=== PATIENT | female | born 1965 | race Hispanic/Latino ===

== ENCOUNTER 2024-07-26 00:54 | Emergency (ER) | payer OTHER ==
[2024-07-26] MEDS ORDERED: AMOX/K CLAV 875 MG TAB ONE (01:52)
--- NOTE | 2024-07-26 02:04 | EDPHYS ---
Physician Documentation [facility] Name: Mi Turcios Age: 58 yrs Sex: Female : 1965 Arrival Date: 07/26/2024 Time: 00:54 Bed 5 Private MD: ED Physician Tasneem Quinn HPI: 07/26 01:50 This 58 yrs old Female presents to ER via Unassigned with complaints of Flu sp3 Symptoms. 01:50 58-year-old female with history of hypertension presents with right buccal area sp3 swelling for 2 to 3 days. She denies any fever, sore throat, chest pain, shortness of breath, neck pain, sinus pressure, or any other signs or symptoms on ROS at this time. She has had prior dental work in the past.. Historical: - Allergies: 01:53 No Known Allergies; vc1 - PMHx: 01:53 Hypertensive disorder; vc1 - PSHx: 01:53 section; vc1 - Immunization history:: Client reports receiving the 2nd dose of the Covid vaccine, Flu vaccine is not up to date. - Infectious Disease History:: Denies. - Social history:: Smoking status: Patient denies any tobacco usage or history of. ROS: 01:51 Constitutional: Negative for fever, chills, and weight loss, Eyes: Negative for injury, sp3 pain, redness, and discharge, Neck: Negative for injury, pain, and swelling, Cardiovascular: Negative for chest pain, palpitations, and edema, Respiratory: Negative for shortness of breath, cough, wheezing, and pleuritic chest pain, Abdomen/GI: Negative for abdominal pain, nausea, vomiting, diarrhea, and constipation, Back: Negative for injury and pain, MS/Extremity: Negative for injury and deformity, Neuro: Negative for headache, weakness, numbness, tingling, and seizure, Psych: Negative for depression, anxiety, suicide ideation, homicidal ideation, and hallucinations, Allergy/Immunology: Negative for hives, rash, and allergies, Endocrine: Negative for neck swelling, polydipsia, polyuria, polyphagia, and marked weight changes, 01:51 All other systems are negative, Exam: 01:51 Constitutional: This is a well developed, well nourished patient who is awake, alert, sp3 and in no acute distress. Eyes: Pupils equal round and reactive to light, extra-ocular motions intact. Lids and lashes normal. Conjunctiva and sclera are non-icteric and not injected. Cornea within normal limits. Periorbital areas with no swelling, redness, or edema. ENT: Nares patent. No nasal discharge, no septal abnormalities noted. External auditory canals are clear. Oropharynx with no redness, swelling, or masses, exudates, or evidence of obstruction, uvula midline. Mucous membranes moist. Neck: Trachea midline, no thyromegaly or masses palpated, and no cervical lymphadenopathy. Supple, full range of motion without nuchal rigidity, or vertebral point tenderness. No Meningismus. Chest/axilla: Normal chest wall appearance and motion. Nontender with no deformity. No lesions are appreciated. Cardiovascular: Regular rate and rhythm with a normal S1 and S2. No gallops, murmurs, or rubs. Normal PMI, no JVD. No pulse deficits. Respiratory: Lungs have equal breath sounds bilaterally, clear to auscultation and percussion. No rales, rhonchi or wheezes noted. No increased work of breathing, no retractions or nasal flaring. Abdomen/GI: Soft, non-tender, with normal bowel sounds. No distension or tympany. No guarding or rebound. No evidence of tenderness throughout. Back: No spinal tenderness. No costovertebral tenderness. Full range of motion. MS/ Extremity: Pulses equal, no cyanosis. Neurovascular intact. Full, normal range of motion. Neuro: Awake and alert, GCS 15, oriented to person, place, time, and situation. Cranial nerves II-XII grossly intact. Motor strength 5/5 in all extremities. Sensory grossly intact. Cerebellar exam normal. Normal gait. Psych: Awake, alert, with orientation to person, place and time. Behavior, mood, and affect are within normal limits. 01:51 Head/face: Right buccal area of swelling and exterior face swelling without surface cellulitis. Mild dental tenderness noted in the maxilla on the right side. No uvular shift or peritonsillar swelling.. Vital Signs: 01:51 BP 151 / 90; Pulse 68; Resp 14; Temp 97.7; Pulse Ox 96% ; Weight 90.72 kg; Height 5 ft. vc1 3 in. ; Pain 10/10; 01:54 BP 136 / 80; Pulse 63; Resp 18; Pulse Ox 97% ; br2 01:51 Body Mass Index 35.43 (90.72 kg, 160.02 cm) vc1 01:51 Pain Scale: Adult vc1 MDM: 01:06 Medical Screening Exam initiated sp3 01:52 Data reviewed: vital signs, nurses notes. ED course: Differential diagnosis includes sp3 dental origin infection versus buccal infection versus mild facial cellulitis. Treatment will be the same [id number] with Augmentin p.o. with first dose given in the ER. Follow-up with dentistry for further evaluation and PCP as needed.. Administered Medications: 01:54 Drug: Amoxicillin-Clavulanate PO 875 mg PO once Route: PO; cp4 01:57 Follow up: Response: Medication administered at discharge. vc1 Disposition Summary: 07/26/24 01:53 Discharge Ordered Notes: Location: Home sp3 Condition: Stable sp3 Diagnosis - Facial swelling and dental infection sp3 Followup: sp3 - With: Private Physician - When: Upon discharge from the Emergency Department - Reason: Continuance of care Discharge Instructions: - Discharge Summary Sheet sp3 - Dental Pain sp3 Forms: - Medication Reconciliation Form sp3 - Antibiotic Education sp3 - Prescription Opioid Use sp3 - Patient Portal Instructions sp3 - Leadership Thank You Letter sp3 Prescriptions: - Augmentin 875-125 mg Oral Tablet - take 1 tablet ORAL route every 12 hours for 10 days; 20 tablet; Refills: 0, sp3 Product Selection Permitted - Tramadol 50 mg Oral Tablet - take 1 tablet ORAL route every 8 hours as needed; 12 tablet; Refills: 0, sp3 Product Selection Permitted Signatures: Dispatcher [employer] EDTasneem Huff MD MD sp3 Cassi Powell RN RN vc1 Piedad Leal cp4
--- NOTE | 2024-07-26 02:04 | ER ---
Nurse's Notes [facility] Name: Mi Turcios Age: 58 yrs Sex: Female : 1965 Arrival Date: 07/26/2024 Time: 00:54 Bed 5 Private MD: Diagnosis: Facial swelling and dental infection Presentation: 07/26 01:51 Chief complaint: Patient states: Right cheek swollen and painful. Coronavirus screen: vc1 Client denies travel out of the [place] in the last 14 days. At this time, the client does not indicate any symptoms associated with coronavirus-19. Ebola Screen: Patient negative for fever greater than or equal to 101.5 degrees Fahrenheit, and additional compatible Ebola Virus Disease symptoms Patient denies exposure to infectious person. Patient denies travel to an Ebola-affected area in the 21 days before illness onset. No symptoms or risks identified at this time. Initial Sepsis Screen: Does the patient meet any 2 criteria? No. Patient's initial sepsis screen is negative. Does the patient have a suspected source of infection? No. Patient's initial sepsis screen is negative. Risk Assessment: Do you want to hurt yourself or someone else? Patient reports no desire to harm self or others. Onset of symptoms was July 25, 2024. 01:51 Method Of Arrival: Ambulatory vc1 01:51 Acuity: KAVIN 4 vc1 Triage Assessment: 01:55 General: Appears in no apparent distress. uncomfortable, obese, Behavior is vc1 cooperative, crying. Pain: Complains of pain in right cheek Pain radiates to right ear Pain currently is 10 out of 10 on a pain scale. Quality of pain is described as pressure. EENT: No deficits noted. No signs and/or symptoms were reported regarding the EENT system. Neuro: Level of Consciousness is awake, alert, obeys commands, Oriented to person, place, time, situation, Appropriate for age. Cardiovascular: Heart tones S1 S2 present Capillary refill < 3 seconds Patient's skin is warm and dry. Respiratory: Airway is patent Respiratory effort is even, unlabored, Respiratory pattern is regular, symmetrical, Breath sounds are clear bilaterally. GI: Abdomen is round non-distended. : No deficits noted. No signs and/or symptoms were reported regarding the genitourinary system. Derm: Skin is intact, is healthy with good turgor, Skin is dry, Skin is normal, Skin temperature is warm. Musculoskeletal: Circulation, motion, and sensation intact. Range of motion: intact in all extremities. Historical: - Allergies: 01:53 No Known Allergies; vc1 - PMHx: 01:53 Hypertensive disorder; vc1 - PSHx: 01:53 section; vc1 - Immunization history:: Client reports receiving the 2nd dose of the Covid vaccine, Flu vaccine is not up to date. - Infectious Disease History:: Denies. - Social history:: Smoking status: Patient denies any tobacco usage or history of. Screenin:51 [facility] ED Fall Risk Assessment (Adult) History of falling in the last 3 months, vc1 including since admission No falls in past 3 months (0 pts) Confusion or Disorientation No (0 pts) Intoxicated or Sedated No (0 pts) Impaired Gait No (0 pts) Mobility Assist Device Used No (0 pt) Altered Elimination No (0 pt) Score/Fall Risk Level 0 - 2 = Low Risk Oriented to surroundings, Maintained a safe environment, Educated pt \T\ family on fall prevention, incl call for assistance when getting out of bed. Abuse screen: Denies threats or abuse. Nutritional screening: No deficits noted. Tuberculosis screening: No symptoms or risk factors identified. Assessment: 01:49 Reassessment: Patient and/or family updated on plan of care and expected duration. Pain br2 level reassessed. Patient is alert, oriented x 3, equal unlabored respirations, skin warm/dry/pink. General: Appears uncomfortable, Behavior is calm, cooperative. Pain: Complains of pain in right cheek and right ear Pain currently is 10 out of 10 on a pain scale. EENT: Reports RIGHT CHEEK SWOLLEN AND RED. Vital Signs: 01:51 BP 151 / 90; Pulse 68; Resp 14; Temp 97.7; Pulse Ox 96% ; Weight 90.72 kg; Height 5 ft. vc1 3 in. ; Pain 10/10; 01:54 BP 136 / 80; Pulse 63; Resp 18; Pulse Ox 97% ; br2 01:51 Body Mass Index 35.43 (90.72 kg, 160.02 cm) vc1 01:51 Pain Scale: Adult vc1 ED Course: 00:59 Patient arrived in ED. im 01:00 Tasneem Quinn MD is Attending Physician. sp3 01:49 Teagan Cage, RN is Primary Nurse. br2 01:52 Triage completed. vc1 01:53 Arm band placed on right wrist. vc1 01:54 Patient has correct armband on for positive identification. Bed in low position. Call vc1 light in reach. Pulse ox on. NIBP on. 01:56 Provided Education on: complete abx. vc1 01:56 No provider procedures requiring assistance completed. Patient did not have IV access br2 during this emergency room visit. Administered Medications: 01:54 Drug: Amoxicillin-Clavulanate PO 875 mg PO once Route: PO; cp4 01:57 Follow up: Response: Medication administered at discharge. vc1 Medication: :54 VIS not applicable for this client. vc1 Outcome: 01:53 Discharge ordered by . sp3 01:56 Discharged to home ambulatory, vc1 01:56 Condition: good 01:56 Discharge instructions given to patient, Instructed on discharge instructions, follow up and referral plans. medication usage, Demonstrated understanding of instructions, follow-up care, medications, Prescriptions given X 2, 01:56 Discharged to home ambulatory, br2 01:56 Condition: good 01:56 Discharge instructions given to patient, Instructed on discharge instructions, follow up and referral plans. Demonstrated understanding of instructions, follow-up care, medications, Prescriptions given X 2, 02:04 Patient left the ED. cp4 Signatures: Tasneem Quinn MD MD sp3 Cassi Powell, RN RN vc1 Janie Donis Christina cp4 Teagan Cage, LANDRY RN br2
[2024-07-26 08:44] VITALS: TEMP 97.7
[2024-07-26 08:45] VITALS: BP 136/80; O2SAT 97
--- OUTSIDE RECORDS SUMMARY | 2024-07-27 02:09 | XMS REPORT | Continuity of Care Document ---
Author Name Unknown Address [address] [facility] Add[place]. [address] [place] [id number] [facility] thconnect Address [address] [facility] 1 [address] [place] [address] Care Team Providers Care Senior Trial Attorney Name Role Phone Noelle Kelsey Primary Care Physician [phone] JOAQUIN HAMMOND Attending Clinician Unavailab laila KAUR Attending Clinician Unavailable THOMAS_S Admitting Clinician Unavailable Payers Payer Name Policy Type Policy Number Effective Date Expirati on Date Source [facility] LEELEE HUFFMAN COPAY FOCUS 9 [id number] 2023 00:00:00 Medications Ordered Medication Name Filled Medication Name Start Date Stop Date Current Medication? Ordering Clinician Indication Dosage Frequency Signature (SIG) Comments Components Source chlorthalid one 50 mg tablet - 00:00: 00 Yes 1mg Lorne Patricia diclofenac sodium 75 mg tablet,jonathan yed release - 00:00: 00 Yes 1mg Lorne Patricia meloxicam 15 mg tablet 10-27 00:00: 00 Yes 1mg Lorne Patricia meloxicam 15 mg tablet 10-15 00:00: 00 Yes 1mg Lorne Patricia tramadol 50 mg tablet - 00:00: 00 Yes 12mg Lorne Patricia diclofenac 1 % topical gel - 00:00: 00 Yes 1% Lorne Patricia cyclobenzap rine 10 mg tablet -16 00:00: 00 Yes 1mg Lorne Patricia gabapentin 100 mg capsule -16 00:00: 00 Yes 1mg Lorne Patricia amlodipine 10 mg tablet - 00:00: 00 Yes mg Lorneshalonda Patricia atorvastati n 40 mg tablet 09-17 00:00: 00 Yes mg Lorne Ty Patricia hydrochloro thiazide 25 mg tablet 09-17 00:00: 00 Yes mg Lorne Patricia lisinopril 40 mg tablet 09-17 00:00: 00 Yes mg Lorne Patricia TAKE 1 TABLET DAILY. 08-05 00:00: 00 Yes 10 Lorne Ty Patricia TAKE 1 TABLET BY MOUTH DAILY 08-05 00:00: 00 Yes 40 Lorne F Harshad TAKE 1 TABLET BY MOUTH DAILY 08-05 00:00: 00 Yes 40 Lorne Ty Patricia TAKE 1 TABLET DAILY. 08-05 00:00: 00 Yes 25 Lorne Patricia TAKE 1 TABLET DAILY. 2022-06 00:00: 00 11-08 00:00 :00 No 75 Lorne Ty Patricia TAKE 1 CAPSULE BY MOUTH ONCE DAILY 2022-06 1- 00:00: 00 11-08 00:00 :00 No 125 Lorne F Harshad TAKE 1 TABLET DAILY. 2022-06 1 00:00: 00 11-08 00:00 :00 No 10 Lorne Ty Patricia TAKE 1 TABLET BY MOUTH DAILY 2022-06 1- 00:00: 00 11-08 00:00 :00 No 40 Lorne F Harshad TAKE 1 CAPSULE BY MOUTH ONCE DAILY 2022-06 0-04 00:00: 00 11-08 00:00 :00 No 125 Lorne F Harshad TAKE 1 TABLET DAILY. 2022-06 0-04 00:00: 00 11-08 00:00 :00 No 10 Lorne F Harshad TAKE 1 TABLET BY MOUTH DAILY 2022-06 0-04 00:00: 00 11-08 00:00 :00 No 40 Lorne F Harshad TAKE 1 TABLET BY MOUTH DAILY 2022-06 0-04 00:00: 00 11-08 00:00 :00 No 40 Lorne F Harshad TAKE DIRECTED. 8-30 00:00: 00 11-08 00:00 :00 No Lorne F Harshad TAKE 1 CAPSULE BY MOUTH ONCE DAILY 01-21 00:00: 00 11-08 00:00 :00 No 125 Lorne F Harshad TAKE 1 TABLET BY MOUTH DAILY 01-21 00:00: 00 11-08 00:00 :00 No 40 Lorne F Harshad TAKE 1 TABLET BY MOUTH DAILY 01-21 00:00: 00 11-08 00:00 :00 No 40 Lorne F Harshad TAKE 1 TABLET DAILY. 09-22 00:00: 00 11-08 00:00 :00 No 40 Lorne F Harshad TAKE 1 TABLET DAILY. 09-22 00:00: 00 11-08 00:00 :00 No 40 Lorne F Harshad TAKE 1 TABLET EVERY 8 HOURS NEEDED FOR MUSCLE SPASM. 09-22 00:00: 00 11-08 00:00 :00 No 10 Lorne F Harshad TAKE 1 TABLET TWICE A DAY NEEDED 09-22 00:00: 00 11-08 00:00 :00 No 600 Lorne F Harshad Dose Unknown 2021-06 00:00: 00 11-08 00:00 :00 No Lorne F Harshad Dose Unknown 2021-06 00:00: 00 11-08 00:00 :00 No Lorne F Harshad Dose Unknown 2021-06 00:00: 00 11-08 00:00 :00 No Lorne F Harshad Dose Unknown 2021-06 00:00: 00 11-08 00:00 :00 No Lorne F Harshad TAKE 1 TABLET DAILY. 2021-06 00:00: 00 11-08 00:00 :00 No 40unit Lorne F Harshad TAKE 1 CAPSULE ONCE DAILY. 2021-06 00:00: 00 11-08 00:00 :00 No 125 Lorne F Harshad TAKE 1 TABLET DAILY. 2021-06 00:00: 00 11-08 00:00 :00 No 40 Lorne F Harshad Dose Unknown 11-18 00:00: 00 Yes Lorne F Harshad Dose Unknown 11-18 00:00: 00 Yes Lorne F Harshad Dose Unknown 2021-0 5- 00:00: 00 No Dose Unknown 2021-0 5- 00:00: 00 No Dose Unknown 2021-0 2- 00:00: 00 Yes Lorne Patricia Dose Unknown 2021-0 2-02 00:00: 00 Yes Lorne Patricia Dose Unknown 2021-0 2-02 00:00: 00 No Dose Unknown 2021-0 2- 00:00: 00 No Dose Unknown 2020-1 2- 00:00: 00 Yes oLrne Ptaricia Dose Unknown 2020-1 2- 00:00: 00 No Dose Unknown 2020-0 8-29 00:00: 00 Yes Lorne Patricia Dose Unknown 2020-0 8-29 00:00: 00 No Dose Unknown 2020-0 8-02 00:00: 00 Yes Lorne Patricia Dose Unknown 2020-0 8- 00:00: 00 No Dose Unknown 2020-0 7 00:00: 00 Yes Lorne Patricia Dose Unknown 0 7 00:00: 00 No Dose Unknown 0 830 00:00: 00 Yes Lorne Patricia Dose Unknown 0 830 00:00: 00 No lisinopril 10 mg-hydrochl orothiazide 12.5 mg tablet 0 02-18 00:00: 00 Yes 1mg Lorne Patricia lisinopril 10 mg-hydrochl orothiazide 12.5 mg tablet 0 8 00:00: 00 No 1mg lisinopril 10 mg-hydrochl orothiazide 12.5 mg tablet 0 02-18 00:00: 00 No 5mg Vital Signs Vital Name Observation Time Observation Value Comments S ource BP Systolic 2023-11-05 15:53:00 105 mm[Hg] Rashawn Patricia BP Diastolic 2023-11-05 15:53:00 69 mm[Hg] Addison Patricia Weight Measured 2023-11-05 15:53:00 207.20 pounds Lorne Patricia Height Measured 2023-11-05 15:53:00 63.00 inches Lorne Patricia Body Temperature 2023-11-05 15:53:00 98.00 degrees Lorne Patricia Heart Rate 2023-11-05 15:53:00 79.00 /min Nickie en F Harshad Respiratory Rate 2023-11-05 15:53:00 16.00 /min Lorne F Harshad BP Systolic 2023-10-16 14:56:00 104 mm[Hg] Step hen F Harshad BP Diastolic 2023-10-16 14:56:00 71 mm[Hg] Addison phen F Harshad Weight Measured 2023-10-16 14:56:00 204.60 pounds Lorne F Harshad Height Measured 2023-10-16 14:56:00 63.00 inches Lorne F Harshad Body Temperature 2023-10-16 14:56:00 98.20 degrees Lorne F Harshad Heart Rate 2023-10-16 14:56:00 87.00 /min Nickie en F Harshad Respiratory Rate 2023-10-16 14:56:00 18.00 /min Lorne F Harshad BP Systolic 2023-10-13 17:39:00 103 mm[Hg] Step hen F Harshad BP Diastolic 2023-10-13 17:39:00 62 mm[Hg] Addison phen F Harshad Weight Measured 2023-10-13 17:39:00 207.20 pounds Lorne F Harshad Height Measured 2023-10-13 17:39:00 63.00 inches Lorne F Harshad Body Temperature 2023-10-13 17:39:00 97.20 degrees Lorne F Harshad Heart Rate 2023-10-13 17:39:00 67.00 /min Nickie en F Harshad Respiratory Rate 2023-10-13 17:39:00 18.00 /min Lorne F Harshad BP Systolic 2023-08-05 16:52:00 133 mm[Hg] Step hen F Harshad BP Diastolic 2023-08-05 16:52:00 84 mm[Hg] Addison phen F Harshad Weight Measured 2023-08-05 16:52:00 210.40 pounds Lorne F Harshad Height Measured 2023-08-05 16:52:00 63.00 inches Lorne F Harshad Body Temperature 2023-08-05 16:52:00 98.10 degrees Lorne F Harshad Heart Rate 2023-08-05 16:52:00 68.00 /min Nickie en F Harshad Respiratory Rate 2023-08-05 16:52:00 17.00 /min Lorne F Harshad BP Systolic 2023-05-12 17:20:00 128 mm[Hg] Step hen F Harshad BP Diastolic 2023-05-12 17:20:00 88 mm[Hg] Addison phen F Harshad Weight Measured 2023-05-12 17:20:00 209.80 pounds Lorne F Harshad Height Measured 2023-05-12 17:20:00 63.00 inches Lorne F Harshad Body Temperature 2023-05-12 17:20:00 98.00 degrees Lorne F Harshad Heart Rate 2023-05-12 17:20:00 87.00 /min Nickie en F Harshad Respiratory Rate 2023-05-12 17:20:00 Lorne F Harshad BP Systolic 2023-05-01 17:08:00 116 mm[Hg] Step hen F Harshad BP Diastolic 2023-05-01 17:08:00 75 mm[Hg] Addison phen F Harshad Weight Measured 2023-05-01 17:08:00 213.00 pounds Lorne F Harshad Height Measured 2023-05-01 17:08:00 63.00 inches Lorne F Harshad Body Temperature 2023-05-01 17:08:00 98.00 degrees Lorne F Harshad Heart Rate 2023-05-01 17:08:00 64.00 /min Nickie en F Harshad Respiratory Rate 2023-05-01 17:08:00 Lorne F Harshad BP Systolic 2023-04-01 17:23:00 184 mm[Hg] Step hen F Harshad BP Diastolic 2023-04-01 17:23:00 86 mm[Hg] Addison phen F Harshad Weight Measured 2023-04-01 17:23:00 211.20 pounds Lorne F Harshad Height Measured 2023-04-01 17:23:00 63.00 inches Lorne F Harshad Body Temperature 2023-04-01 17:23:00 98.10 degrees Lorne F Harshad Heart Rate 2023-04-01 17:23:00 61.00 /min Nickie en F Harshad Respiratory Rate 2023-04-01 17:23:00 Lorne F Harshad BP Systolic 2023-02-25 09:22:00 186 mm[Hg] Step hen F Harshad BP Diastolic 2023-02-25 09:22:00 108 mm[Hg] Addison phen F Harshad Weight Measured 2023-02-25 09:22:00 206.80 pounds Lorne F Harshad Height Measured 2023-02-25 09:22:00 63.00 inches Lorne F Harshad Body Temperature 2023-02-25 09:22:00 98.10 degrees Lorne F Harshad Heart Rate 2023-02-25 09:22:00 90.00 /min Nickie en F Harshad Respiratory Rate 2023-02-25 09:22:00 19.00 /min Lorne F Harshad BP Systolic 2022-09-22 08:34:00 131 mm[Hg] Step hen F Harshad BP Diastolic 2022-09-22 08:34:00 86 mm[Hg] Addison phen F Harshad Weight Measured 2022-09-22 08:34:00 196.40 pounds Lorne F Harshad Height Measured 2022-09-22 08:34:00 63.00 inches Lorne F Harshad Body Temperature 2022-09-22 08:34:00 97.80 degrees Lorne F Harshad Heart Rate 2022-09-22 08:34:00 60.00 /min Nickie en F Harshad Respiratory Rate 2022-09-22 08:34:00 Lorne F Harshad BP Systolic 2022-06-04 17:48:00 144 mm[Hg] Step hen F Harshad BP Diastolic 2022-06-04 17:48:00 90 mm[Hg] Addison phen F Harshad Weight Measured 2022-06-04 17:48:00 201.00 pounds Lorne F Harshad Height Measured 2022-06-04 17:48:00 63.00 inches Lorne F Harshad Body Temperature 2022-06-04 17:48:00 98.20 degrees Lorne F Harshad Heart Rate 2022-06-04 17:48:00 70.00 /min Nickie en F Harshad Respiratory Rate 2022-06-04 17:48:00 18.00 /min Lorne F Harshad BP Systolic 2022-05-26 17:07:00 119 mm[Hg] Step hen F Harshad BP Diastolic 2022-05-26 17:07:00 83 mm[Hg] Addison phen F Harshad Weight Measured 2022-05-26 17:07:00 199.20 pounds Lorne F Harshad Height Measured 2022-05-26 17:07:00 63.00 inches Lorne F Harshad Body Temperature 2022-05-26 17:07:00 97.60 degrees Lorne F Harshad Heart Rate 2022-05-26 17:07:00 94.00 /min Nickie en F Harshad Respiratory Rate 2022-05-26 17:07:00 16.00 /min Lorne F Harshad BP Systolic 2021-11-18 09:51:00 141 mm[Hg] Step hen F Harshad BP Diastolic 2021-11-18 09:51:00 90 mm[Hg] Addison phen F Harshad Weight Measured 2021-11-18 09:51:00 197.40 pounds Lorne F Harshad Height Measured 2021-11-18 09:51:00 63.00 inches Lorne F Harshad Body Temperature 2021-11-18 09:51:00 97.60 degrees Lorne F Harshad Heart Rate 2021-11-18 09:51:00 63.00 /min Nickie en F Harshad Respiratory Rate 2021-11-18 09:51:00 16.00 /min Lorne Patricia BP Systolic 2021-02-25 14:31:00 BP Diastolic 2021-02-25 14:31:00 Weight Measured 2021-02-25 14:31:00 197.00 pounds Height Measured 2021-02-25 14:31:00 63.00 inches Body Temperature 2021-02-25 14:31:00 Heart Rate 2021-02-25 14:31:00 Respiratory Rate 2021-02-25 14:31:00 BP Systolic 2021-02-24 10:45:00 BP Diastolic 2021-02-24 10:45:00 Weight Measured 2021-02-24 10:45:00 193.00 pounds Height Measured 2021-02-24 10:45:00 62.00 inches Body Temperature 2021-02-24 10:45:00 Heart Rate 2021-02-24 10:45:00 Respiratory Rate 2021-02-24 10:45:00 BP Systolic 2021-01-26 08:17:00 157 mm[Hg] BP Diastolic 2021-01-26 08:17:00 104 mm[Hg] Weight Measured 2021-01-26 08:17:00 204.40 pounds Height Measured 2021-01-26 08:17:00 62.60 inches Body Temperature 2021-01-26 08:17:00 97.90 degrees Heart Rate 2021-01-26 08:17:00 55.00 /min Respiratory Rate 2021-01-26 08:17:00 BP Systolic 2019-02-25 16:01:00 120 mm[Hg] BP Diastolic 2019-02-25 16:01:00 78 mm[Hg] Weight Measured 2019-02-25 16:01:00 178.00 pounds Height Measured 2019-02-25 16:01:00 62.60 inches Body Temperature 2019-02-25 16:01:00 97.80 degrees Heart Rate 2019-02-25 16:01:00 90.00 /min Respiratory Rate 2019-02-25 16:01:00 16.00 /min BP Systolic 2019-02-18 08:48:00 174 mm[Hg] BP Diastolic 2019-02-18 08:48:00 96 mm[Hg] Weight Measured 2019-02-18 08:48:00 181.80 pounds Height Measured 2019-02-18 08:48:00 62.60 inches Body Temperature 2019-02-18 08:48:00 98.20 degrees Heart Rate 2019-02-18 08:48:00 66.00 /min Respiratory Rate 2019-02-18 08:48:00 16.00 /min Procedures Procedure Date / Time Performed Performing Clinicia n Source Ekg 2021-01-26 00:00:00 Lorne Patricia Plan of Care Planned Activity Planned Date Details Comments Source Goal Plan of Care Note [code = 42969-7] Goal Plan of Care Note [code = 99390-4] Goal Plan of Care Note [code = 42426-2] Goal Plan of Care Note [code = 34650-3] Goal Plan of Care Note [code = 65954-6] Goal Plan of Care Note [code = 39860-9] Goal Plan of Care Note [code = 43257-7] Goal Plan of Care Note [code = 65322-0] Goal Plan of Care Note [code = 88388-9] Goal Plan of Care Note [code = 68273-7] Goal Plan of Care Note [code = 52408-6] Goal Plan of Care Note [code = 82350-2] Goal Plan of Care Note [code = 33211-9] Encounters Start Date/Time End Date/Time Encounter Type Admission Type Attending [facility] Care Department Encounter ID Source 2023-11-05 15:37:39 2023-11-05 15:37:39 Outpatient [facility] [id number] Lorne Patricia 2023-11-05 00:00:00 2023-11-05 00:00:00 Outpatient Visit SFA [id number] Lorne Patricia 2023-10-30 14:41:10 2023-10-30 14:41:10 Outpatient [facility] [id number] Lorne Patricia 2023-10-30 00:00:00 2023-10-30 00:00:00 Outpatient Visit SFA [id number] Lorne Patricia 2023-10-29 00:00:00 2023-10-29 00:00:00 Outpatient JUJU ARREOLA [id number] [facility] 2023-10-29 00:00:00 2023-10-29 00:00:00 Outpatient JUJU ARREOLA [id number] [facility] 2023-10-29 00:00:00 2023-10-29 00:00:00 Outpatient STEPHANY JOAQUIN JUJU ARREOLA [id number] [facility] 2023-10-16 14:52:04 2023-10-16 14:52:04 Outpatient [facility] [id number] Lorne Patricia 2023-10-16 00:00:00 2023-10-16 00:00:00 Outpatient Visit SFA [id number] Lorne Patricia 2023-10-13 00:00:00 2023-10-13 00:00:00 Outpatient Visit SFA [id number] Lorne Patricia 2023-08-05 16:46:23 2023-08-05 16:46:23 Outpatient [facility] [id number] Lorne Patricia 2023-05-12 17:20:06 2023-05-12 17:20:06 Outpatient S[facility] [id number] Lorne Patricia 2023-05-01 17:00:16 2023-05-01 17:00:16 Outpatient [facility] [id number] Lorne Patricia 2023-04-01 17:14:48 2023-04-01 17:14:48 Outpatient [facility] [id number] Lorne Patricia 2023-02-25 09:09:42 2023-02-25 09:09:42 Outpatient S[facility] [id number] Lorne Patricia 2022-09-22 08:32:26 2022-09-22 08:32:26 Outpatient S[facility] [id number] Lorne Patricia 2022-06-04 17:37:38 2022-06-04 17:37:38 Outpatient S[facility] [id number] Lorne Patricia 2022-05-26 16:55:52 2022-05-26 16:55:52 Outpatient [facility] [id number] Lorne Patricia 2022-05-26 00:00:00 2022-05-26 00:00:00 Outpatient Visit [id number] 2021-01-14 04:10:00 2021-01-14 04:10:00 Outpatient VINCENT PEREIRA CAYDENMARCOS [id number] [facility] Results Test Description Test Time Test Comments Results Result Co mments Source LIPID [id number] 02:37:13* Test Item Value Reference Range Interpretation Comme nts CHOLESTEROL (test code = 2210) 260 MG/DL <200 H TRIGLYCERIDES (test code = 2232) 203 MG/DL <150 H HDL CHOLESTEROL (test code = 2220) 46 MG/DL >39 CALC LDL CHOL (test code = 2237) 178 MG/DL <100 H NOTE: CALCULATED LDL IS BASED ON KISHOR-SCHAEFFER METHOD WHICHINCLUDES ADJUSTABLE TRIGLYCERIDE:VLDL CHOLESTEROL RATIO.THIS FACTOR VARIES BY MEASURED TRIGLYCERIDE AND NON-HDLCHOLESTEROL CONCENTRATIONS WITH INCREASED CALCULATED LDL SEENIN HIGHER TRIGLYCERIDE OR LOWER NON-HDL SPECIMENS. FOR MOREINFORMATION, SEE CLIENT ANNOUNCEMENT AT [email or web address] RISK RATIO LDL/HDL (test code = 2237) 3.87 RATIO <3.22 H COMPREHENSIVE METABOLIC [id number] 02:37:13* Test Item Value Reference Range Interpretation Comme nts GLUCOSE (test code = 2216) 125 MG/DL 70-99 H BUN (test code = 2207) 20 MG/DL 6-20 CREATININE (test code = 221) 0.75 MG/DL 0.60-1.30 eGFR (2020 CKD-EPI) (test code = 55214) 93 ML/MIN/1.73 >60 CALC BUN/CREAT (test code = 2234) 27 RATIO 6-28 SODIUM (test code = 2230) 141 MEQ/L 133-146 POTASSIUM (test code = 222) 3.8 MEQ/L 3.5-5.4 CHLORIDE (test code = 2214) 101 MEQ/L 95-107 CARBON DIOXIDE (test code = 2205) 26 MEQ/L 19-31 CALCIUM (test code = 220) 10.0 MG/DL 8.5-10.5 PROTEIN, TOTAL (test code = 2228) 7.5 G/DL 6.1-8.3 ALBUMIN (test code = 2200) 4.5 G/DL 3.5-5.2 CALC GLOBULIN (test code = 2240) 3.0 G/DL 1.9-3.7 CALC A/G RATIO (test code = 2233) 1.5 RATIO 1.0-2.6 BILIRUBIN, TOTAL (test code = 2206) 0.4 MG/DL See_Comment [Automated me ssage] The system which generated this result transmitted reference range: <=1.2. The reference range was not used to interpret this result as normal/abnormal. ALKALINE PHOSPHATASE (test code = 2203) 75 U/L 40-136 AST (test code = 2218) 22 U/L 9-40 ALT (test code = 2219) 18 U/L 5-40 [facility] has impo rtant pathology staff changes effective 08/27/2022. New pathology staff will provide uninterrupted, excellent patient care and clinical consultation. See URL: [email or web address]. UNLESS OTHERWISE INDICATED, ALL TESTING PERFORMED AT [facility] [address] [place] [id number] PAINT SPRAY TENDER: Moira SARABIAIA NUMBER [id number] [facility] [place]. [id number] HEMOGLOBIN [id number] 00:00:00* Test Item Value Reference Range Interpretation Comme nts HEMOGLOBIN A1c (test code = 61652) 6.1 % Lorne PatriciaLIPID [id number] 00:00:00* Test Item Value Reference Range Interpretation Comme nts CHOLESTEROL (test code = 2210) 260 MG/DL TRIGLYCERIDES (test code = 2232) 203 MG/DL HDL CHOLESTEROL (test code = 2220) 46 MG/DL CALC LDL CHOL (test code = 2237) 178 MG/DL RISK RATIO LDL/HDL (test cod e = 2238) 3.87 RATIO Lorne PatriciaCOMPREHENSIVE METABOLIC [id number] 00:00:00* Test Item Value Reference Range Interpretation Comme nts GLUCOSE (test code = 2217) 125 MG/DL BUN (test code = 2208) 20 MG/DL CREATININE (test code = 2214) 0.75 MG/DL eGFR (2020 CKD-EPI) (test co de = 94816) 93 ML/MIN/1.73 CALC BUN/CREAT (test code = 2235) 27 RATIO SODIUM (test code = 2231) 141 MEQ/L POTASSIUM (test code = 2228) 3.8 MEQ/L CHLORIDE (test code = 2215) 101 MEQ/L CARBON DIOXIDE (test code = 2206) 26 MEQ/L CALCIUM (test code = 2209) 10.0 MG/DL PROTEIN, TOTAL (test code = 2229) 7.5 G/DL ALBUMIN (test code = 2201) 4.5 G/DL CALC GLOBULIN (test code = 2240) 3.0 G/DL CALC A/G RATIO (test code = 2234) 1.5 RATIO BILIRUBIN, TOTAL (test code = 2207) 0.4 MG/DL ALKALINE PHOSPHATASE (test code = 2204) 75 U/L AST (test code = 2218) 22 U/L ALT (test code = 2219) 18 U/L Lorne F AustinHEMOGLOBIN [id number] 00:00:00* Test Item Value Reference Range Interpretation Comme nts HEMOGLOBIN A1c (test code = 69407) 6.1 % Lorne PatriciaLIPID [id number] 00:00:00* Test Item Value Reference Range Interpretation Comme nts CHOLESTEROL (test code = 2210) 260 MG/DL TRIGLYCERIDES (test code = 2232) 203 MG/DL HDL CHOLESTEROL (test code = 2220) 46 MG/DL CALC LDL CHOL (test code = 2237) 178 MG/DL RISK RATIO LDL/HDL (test cod e = 2238) 3.87 RATIO Lorne PatriciaCOMPREHENSIVE METABOLIC [id number] 00:00:00* Test Item Value Reference Range Interpretation Comme nts GLUCOSE (test code = 2217) 125 MG/DL BUN (test code = 2208) 20 MG/DL CREATININE (test code = 2214) 0.75 MG/DL eGFR (2020 CKD-EPI) (test co de = 69641) 93 ML/MIN/1.73 CALC BUN/CREAT (test code = 2235) 27 RATIO SODIUM (test code = 2231) 141 MEQ/L POTASSIUM (test code = 2228) 3.8 MEQ/L CHLORIDE (test code = 2215) 101 MEQ/L CARBON DIOXIDE (test code = 2206) 26 MEQ/L CALCIUM (test code = 2209) 10.0 MG/DL PROTEIN, TOTAL (test code = 2229) 7.5 G/DL ALBUMIN (test code = 2201) 4.5 G/DL CALC GLOBULIN (test code = 2240) 3.0 G/DL CALC A/G RATIO (test code = 2234) 1.5 RATIO BILIRUBIN, TOTAL (test code = 2207) 0.4 MG/DL ALKALINE PHOSPHATASE (test code = 2204) 75 U/L AST (test code = 2218) 22 U/L ALT (test code = 2219) 18 U/L Lorne PatriciaHEMOGLOBIN [id number] 00:00:00* Test Item Value Reference Range Interpretation Comme nts HEMOGLOBIN A1c (test code = 08242) 6.1 % Lorne PatriciaLIPID [id number] 00:00:00* Test Item Value Reference Range Interpretation Comme nts CHOLESTEROL (test code = 2210) 260 MG/DL TRIGLYCERIDES (test code = 2232) 203 MG/DL HDL CHOLESTEROL (test code = 2220) 46 MG/DL CALC LDL CHOL (test code = 2237) 178 MG/DL RISK RATIO LDL/HDL (test cod e = 2238) 3.87 RATIO Lorne PatriciaCOMPREHENSIVE METABOLIC [id number] 00:00:00* Test Item Value Reference Range Interpretation Comme nts GLUCOSE (test code = 2217) 125 MG/DL BUN (test code = 2208) 20 MG/DL CREATININE (test code = 2214) 0.75 MG/DL eGFR (2020 CKD-EPI) (test co de = 69597) 93 ML/MIN/1.73 CALC BUN/CREAT (test code = 2235) 27 RATIO SODIUM (test code = 2231) 141 MEQ/L POTASSIUM (test code = 2228) 3.8 MEQ/L CHLORIDE (test code = 2215) 101 MEQ/L CARBON DIOXIDE (test code = 2206) 26 MEQ/L CALCIUM (test code = 2209) 10.0 MG/DL PROTEIN, TOTAL (test code = 2229) 7.5 G/DL ALBUMIN (test code = 2201) 4.5 G/DL CALC GLOBULIN (test code = 2240) 3.0 G/DL CALC A/G RATIO (test code = 2234) 1.5 RATIO BILIRUBIN, TOTAL (test code = 2207) 0.4 MG/DL ALKALINE PHOSPHATASE (test code = 2204) 75 U/L AST (test code = 2218) 22 U/L ALT (test code = 2219) 18 U/L Lorne PatriciaHEMOGLOBIN [id number] 00:00:00* Test Item Value Reference Range Interpretation Comme nts HEMOGLOBIN A1c (test code = 98548) 6.1 % Lorne PatriciaLIPID [id number] 00:00:00* Test Item Value Reference Range Interpretation Comme nts CHOLESTEROL (test code = 2210) 260 MG/DL TRIGLYCERIDES (test code = 2232) 203 MG/DL HDL CHOLESTEROL (test code = 2220) 46 MG/DL CALC LDL CHOL (test code = 2237) 178 MG/DL RISK RATIO LDL/HDL (test cod e = 2238) 3.87 RATIO Lorne Crawford AustinCOMPREHENSIVE METABOLIC [id number] 00:00:00* Test Item Value Reference Range Interpretation Comme nts GLUCOSE (test code = 7) 125 MG/DL BUN (test code = 220) 20 MG/DL CREATININE (test code = 2214) 0.75 MG/DL eGFR (2020 CKD-EPI) (test co de = 87259) 93 ML/MIN/1.73 CALC BUN/CREAT (test code = 2235) 27 RATIO SODIUM (test code = 223) 141 MEQ/L POTASSIUM (test code = 2228) 3.8 MEQ/L CHLORIDE (test code = 2215) 101 MEQ/L CARBON DIOXIDE (test code = 2206) 26 MEQ/L CALCIUM (test code = 2209) 10.0 MG/DL PROTEIN, TOTAL (test code = 2228) 7.5 G/DL ALBUMIN (test code = 2200) 4.5 G/DL CALC GLOBULIN (test code = 2240) 3.0 G/DL CALC A/G RATIO (test code = 2234) 1.5 RATIO BILIRUBIN, TOTAL (test code = 2206) 0.4 MG/DL ALKALINE PHOSPHATASE (test code = 2204) 75 U/L AST (test code = 2218) 22 U/L ALT (test code = 2219) 18 U/L Lorne Crawford AustinNOTE: [ADDED]2021-02-01 00:00:00* Test Item Value Reference Range Interpretation Comme nts NOTE: (test code = 998) (NOTE) Lorne Crawford AustinNOTE: [ADDED]2021-02-01 00:00:00* Test Item Value Reference Range Interpretation Comme nts NOTE: (test code = 998) (NOTE) Lorne Crawford AustinNOTE: [ADDED]2021-02-01 00:00:00* Test Item Value Reference Range Interpretation Comme nts NOTE: (test code = 998) (NOTE) Lorne Crawford AustinNOTE: [ADDED]2021-02-01 00:00:00* Test Item Value Reference Range Interpretation Comme nts NOTE: (test code = 998) (NOTE) Lorne Crawford AustinNOTE: [ADDED]2021-02-01 00:00:00* Test Item Value Reference Range Interpretation Comme nts NOTE: (test code = 998) (NOTE) HEMOGLOBIN A1c [ADDED]2021-01-31 00:00:00* Test Item Value Reference Range Interpretation Comme nts HEMOGLOBIN A1c (test code = 75004) 6.2 % Lorne Crawford AustinHEMOGLOBIN A1c [ADDED]2021-01-31 00:00:00* Test Item Value Reference Range Interpretation Comme nts HEMOGLOBIN A1c (test code = 21024) 6.2 % Lorne F AustinHEMOGLOBIN A1c [ADDED]2021-01-31 00:00:00* Test Item Value Reference Range Interpretation Comme nts HEMOGLOBIN A1c (test code = 75257) 6.2 % Lorne F AustinHEMOGLOBIN A1c [ADDED]2021-01-31 00:00:00* Test Item Value Reference Range Interpretation Comme nts HEMOGLOBIN A1c (test code = 14854) 6.2 % Lorne Crawford AustinHEMOGLOBIN A1c [ADDED]2021-01-31 00:00:00* Test Item Value Reference Range Interpretation Comme nts HEMOGLOBIN A1c (test code = 65812) 6.2 % LIPID [id number] 00:00:00* Test Item Value Reference Range Interpretation Comme nts CHOLESTEROL (test code = 2210) 249 MG/DL TRIGLYCERIDES (test code = 2232) 148 MG/DL HDL CHOLESTEROL (test code = 2220) 47 MG/DL CALC LDL CHOL (test code = 2237) 173 MG/DL RISK RATIO LDL/HDL (test cod e = 2238) 3.68 RATIO Lorne PatriciaCOMPREHENSIVE METABOLIC [id number] 00:00:00* Test Item Value Reference Range Interpretation Comme nts GLUCOSE (test code = 2217) 117 MG/DL BUN (test code = 2208) 15 MG/DL CREATININE (test code = 2214) 0.82 MG/DL eGFR AMER. (test cod e = 15125) 93 ML/MIN/1.73 eGFR NON- AMER. (test code = 84500) 80 ML/MIN/1.73 CALC BUN/CREAT (test code = 2235) 18 RATIO SODIUM (test code = 2231) 146 MEQ/L POTASSIUM (test code = 2228) 4.3 MEQ/L CHLORIDE (test code = 2215) 112 MEQ/L CARBON DIOXIDE (test code = 2206) 23 MEQ/L CALCIUM (test code = 2209) 9.3 MG/DL PROTEIN, TOTAL (test code = 2229) 6.9 G/DL ALBUMIN (test code = 2201) 4.3 G/DL CALC GLOBULIN (test code = 2240) 2.6 G/DL CALC A/G RATIO (test code = 2234) 1.7 RATIO BILIRUBIN, TOTAL (test code = 2207) 0.3 MG/DL ALKALINE PHOSPHATASE (test code = 2204) 70 U/L AST (test code = 2218) 29 U/L ALT (test code = 2219) 26 U/L Lorne Crawford AustinLIPID [id number] 00:00:00* Test Item Value Reference Range Interpretation Comme nts CHOLESTEROL (test code = 2210) 249 MG/DL TRIGLYCERIDES (test code = 2232) 148 MG/DL HDL CHOLESTEROL (test code = 2220) 47 MG/DL CALC LDL CHOL (test code = 2237) 173 MG/DL RISK RATIO LDL/HDL (test cod e = 2238) 3.68 RATIO Lorne PatriciaCOMPREHENSIVE METABOLIC [id number] 00:00:00* Test Item Value Reference Range Interpretation Comme nts GLUCOSE (test code = 2217) 117 MG/DL BUN (test code = 2208) 15 MG/DL CREATININE (test code = 2214) 0.82 MG/DL eGFR AMER. (test cod e = 18405) 93 ML/MIN/1.73 eGFR NON- AMER. (test code = 64128) 80 ML/MIN/1.73 CALC BUN/CREAT (test code = 2235) 18 RATIO SODIUM (test code = 2231) 146 MEQ/L POTASSIUM (test code = 2228) 4.3 MEQ/L CHLORIDE (test code = 2215) 112 MEQ/L CARBON DIOXIDE (test code = 2206) 23 MEQ/L CALCIUM (test code = 2209) 9.3 MG/DL PROTEIN, TOTAL (test code = 2229) 6.9 G/DL ALBUMIN (test code = 2201) 4.3 G/DL CALC GLOBULIN (test code = 2240) 2.6 G/DL CALC A/G RATIO (test code = 2234) 1.7 RATIO BILIRUBIN, TOTAL (test code = 2207) 0.3 MG/DL ALKALINE PHOSPHATASE (test code = 2204) 70 U/L AST (test code = 2218) 29 U/L ALT (test code = 2219) 26 U/L Lorne Crawford AustinLIPID [id number] 00:00:00* Test Item Value Reference Range Interpretation Comme nts CHOLESTEROL (test code = 2210) 249 MG/DL TRIGLYCERIDES (test code = 2232) 148 MG/DL HDL CHOLESTEROL (test code = 2220) 47 MG/DL CALC LDL CHOL (test code = 2237) 173 MG/DL RISK RATIO LDL/HDL (test cod e = 2238) 3.68 RATIO Lorne Crawford AustinCOMPREHENSIVE METABOLIC [id number] 00:00:00* Test Item Value Reference Range Interpretation Comme nts GLUCOSE (test code = 2217) 117 MG/DL BUN (test code = 2208) 15 MG/DL CREATININE (test code = 2214) 0.82 MG/DL eGFR AMER. (test cod e = 28506) 93 ML/MIN/1.73 eGFR NON- AMER. (test code = 00359) 80 ML/MIN/1.73 CALC BUN/CREAT (test code = 2235) 18 RATIO SODIUM (test code = 2231) 146 MEQ/L POTASSIUM (test code = 2228) 4.3 MEQ/L CHLORIDE (test code = 2215) 112 MEQ/L CARBON DIOXIDE (test code = 2206) 23 MEQ/L CALCIUM (test code = 2209) 9.3 MG/DL PROTEIN, TOTAL (test code = 2229) 6.9 G/DL ALBUMIN (test code = 2201) 4.3 G/DL CALC GLOBULIN (test code = 2240) 2.6 G/DL CALC A/G RATIO (test code = 2234) 1.7 RATIO BILIRUBIN, TOTAL (test code = 2207) 0.3 MG/DL ALKALINE PHOSPHATASE (test code = 2204) 70 U/L AST (test code = 2218) 29 U/L ALT (test code = 2219) 26 U/L Lorne PatriciaLIPID [id number] 00:00:00* Test Item Value Reference Range Interpretation Comme nts CHOLESTEROL (test code = 2210) 249 MG/DL TRIGLYCERIDES (test code = 2232) 148 MG/DL HDL CHOLESTEROL (test code = 2220) 47 MG/DL CALC LDL CHOL (test code = 2237) 173 MG/DL RISK RATIO LDL/HDL (test cod e = 2238) 3.68 RATIO Lorne F AustinCOMPREHENSIVE METABOLIC [id number] 00:00:00* Test Item Value Reference Range Interpretation Comme nts GLUCOSE (test code = 2217) 117 MG/DL BUN (test code = 2208) 15 MG/DL CREATININE (test code = 2214) 0.82 MG/DL eGFR AMER. (test cod e = 79610) 93 ML/MIN/1.73 eGFR NON- AMER. (test code = 69795) 80 ML/MIN/1.73 CALC BUN/CREAT (test code = 2235) 18 RATIO SODIUM (test code = 2231) 146 MEQ/L POTASSIUM (test code = 2228) 4.3 MEQ/L CHLORIDE (test code = 2215) 112 MEQ/L CARBON DIOXIDE (test code = 2206) 23 MEQ/L CALCIUM (test code = 2209) 9.3 MG/DL PROTEIN, TOTAL (test code = 2229) 6.9 G/DL ALBUMIN (test code = 2201) 4.3 G/DL CALC GLOBULIN (test code = 2240) 2.6 G/DL CALC A/G RATIO (test code = 2234) 1.7 RATIO BILIRUBIN, TOTAL (test code = 2207) 0.3 MG/DL ALKALINE PHOSPHATASE (test code = 2204) 70 U/L AST (test code = 2218) 29 U/L ALT (test code = 2219) 26 U/L Lorne PatriciaLIPID [id number] 00:00:00* Test Item Value Reference Range Interpretation Comme nts CHOLESTEROL (test code = 2210) 249 MG/DL TRIGLYCERIDES (test code = 2232) 148 MG/DL HDL CHOLESTEROL (test code = 2220) 47 MG/DL CALC LDL CHOL (test code = 2237) 173 MG/DL RISK RATIO LDL/HDL (test cod e = 2238) 3.68 RATIO COMPREHENSIVE METABOLIC [id number] 00:00:00* Test Item Value Reference Range Interpretation Comme nts GLUCOSE (test code = 2217) 117 MG/DL BUN (test code = 2208) 15 MG/DL CREATININE (test code = 2214) 0.82 MG/DL eGFR AMER. (test cod e = 09936) 93 ML/MIN/1.73 eGFR NON- AMER. (test code = 46554) 80 ML/MIN/1.73 CALC BUN/CREAT (test code = 2235) 18 RATIO SODIUM (test code = 2231) 146 MEQ/L POTASSIUM (test code = 2228) 4.3 MEQ/L CHLORIDE (test code = 2215) 112 MEQ/L CARBON DIOXIDE (test code = 2206) 23 MEQ/L CALCIUM (test code = 2209) 9.3 MG/DL PROTEIN, TOTAL (test code = 2229) 6.9 G/DL ALBUMIN (test code = 2201) 4.3 G/DL CALC GLOBULIN (test code = 2240) 2.6 G/DL CALC A/G RATIO (test code = 2234) 1.7 RATIO BILIRUBIN, TOTAL (test code = 2207) 0.3 MG/DL ALKALINE PHOSPHATASE (test code = 2204) 70 U/L AST (test code = 2218) 29 U/L ALT (test code = 2219) 26 U/L CBC W/AUTO [id number] 00:00:00* Test Item Value Reference Range Interpretation Comme nts WBC (test code = 1001) 6.0 K/UL RBC (test code = 1002) 4.11 M/UL HEMOGLOBIN (test code = 1003) 12.5 G/DL HEMATOCRIT (test code = 1004) 37.3 % MCV (test code = 1005) 90.8 fL MCH (test code = 1006) 30.4 PG MCHC (test code = 1007) 33.5 G/DL RDW (test code = 1038) 13.5 % NEUTROPHILS (test code = 1008) 43.8 % LYMPHOCYTES (test code = 1010) 43.9 % MONOCYTES (test code = 1011) 7.3 % EOSINOPHILS (test code = 1012) 4.3 % BASOPHILS (test code = 1013) 0.5 % IMMATURE GRANULOCYTES (test code = 1036) 0.2 % NUCLEATED RBCS (test code = 1065) 0.0 /100WBC'S PLATELET COUNT (test code = 1015) 239 K/UL ABSOLUTE NEUTROPHILS (test c ode = 1066) 2.64 K/UL ABSOLUTE LYMPHOCYTES (test c ode = 1067) 2.64 K/UL ABSOLUTE MONOCYTES (test cod e = 1068) 0.44 K/UL ABSOLUTE EOSINOPHILS (test c ode = 1040) 0.26 K/UL ABSOLUTE BASOPHILS (test cod e = 1069) 0.03 K/UL ABS IMMATURE GRANULOCYTES (t est code = 1020) 0.01 K/UL ABS NUCLEATED RBCS (test cod e = 82413) 0.00 K/UL [facility] [id number] 00:00:00* Test Item Value Reference Range Interpretation Comme nts WBC (test code = 1001) 6.0 K/UL RBC (test code = 1002) 4.11 M/UL HEMOGLOBIN (test code = 1003) 12.5 G/DL HEMATOCRIT (test code = 1004) 37.3 % MCV (test code = 1005) 90.8 fL MCH (test code = 1006) 30.4 PG MCHC (test code = 1007) 33.5 G/DL RDW (test code = 1038) 13.5 % NEUTROPHILS (test code = 1008) 43.8 % LYMPHOCYTES (test code = 1010) 43.9 % MONOCYTES (test code = 1011) 7.3 % EOSINOPHILS (test code = 1012) 4.3 % BASOPHILS (test code = 1013) 0.5 % IMMATURE GRANULOCYTES (test code = 1036) 0.2 % NUCLEATED RBCS (test code = 1065) 0.0 /100WBC'S PLATELET COUNT (test code = 1015) 239 K/UL ABSOLUTE NEUTROPHILS (test c ode = 1066) 2.64 K/UL ABSOLUTE LYMPHOCYTES (test c ode = 1067) 2.64 K/UL ABSOLUTE MONOCYTES (test cod e = 1068) 0.44 K/UL ABSOLUTE EOSINOPHILS (test c ode = 1040) 0.26 K/UL ABSOLUTE BASOPHILS (test cod e = 1069) 0.03 K/UL ABS IMMATURE GRANULOCYTES (t est code = 1020) 0.01 K/UL ABS NUCLEATED RBCS (test cod e = 99600) 0.00 K/UL [facility] [id number] 00:00:00* Test Item Value Reference Range Interpretation Comme nts WBC (test code = 1001) 6.0 K/UL RBC (test code = 1002) 4.11 M/UL HEMOGLOBIN (test code = 1003) 12.5 G/DL HEMATOCRIT (test code = 1004) 37.3 % MCV (test code = 1005) 90.8 fL MCH (test code = 1006) 30.4 PG MCHC (test code = 1007) 33.5 G/DL RDW (test code = 1038) 13.5 % NEUTROPHILS (test code = 1008) 43.8 % LYMPHOCYTES (test code = 1010) 43.9 % MONOCYTES (test code = 1011) 7.3 % EOSINOPHILS (test code = 1012) 4.3 % BASOPHILS (test code = 1013) 0.5 % IMMATURE GRANULOCYTES (test code = 1036) 0.2 % NUCLEATED RBCS (test code = 1065) 0.0 /100WBC'S PLATELET COUNT (test code = 1015) 239 K/UL ABSOLUTE NEUTROPHILS (test c ode = 1066) 2.64 K/UL ABSOLUTE LYMPHOCYTES (test c ode = 1067) 2.64 K/UL ABSOLUTE MONOCYTES (test cod e = 1068) 0.44 K/UL ABSOLUTE EOSINOPHILS (test c ode = 1040) 0.26 K/UL ABSOLUTE BASOPHILS (test cod e = 1069) 0.03 K/UL ABS IMMATURE GRANULOCYTES (t est code = 1020) 0.01 K/UL ABS NUCLEATED RBCS (test cod e = 84007) 0.00 K/UL Lorne Ty [facility] W/AUTO [id number] 00:00:00* Test Item Value Reference Range Interpretation Comme nts WBC (test code = 1001) 6.0 K/UL RBC (test code = 1002) 4.11 M/UL HEMOGLOBIN (test code = 1003) 12.5 G/DL HEMATOCRIT (test code = 1004) 37.3 % MCV (test code = 1005) 90.8 fL MCH (test code = 1006) 30.4 PG MCHC (test code = 1007) 33.5 G/DL RDW (test code = 1038) 13.5 % NEUTROPHILS (test code = 1008) 43.8 % LYMPHOCYTES (test code = 1010) 43.9 % MONOCYTES (test code = 1011) 7.3 % EOSINOPHILS (test code = 1012) 4.3 % BASOPHILS (test code = 1013) 0.5 % IMMATURE GRANULOCYTES (test code = 1036) 0.2 % NUCLEATED RBCS (test code = 1065) 0.0 /100WBC'S PLATELET COUNT (test code = 1015) 239 K/UL ABSOLUTE NEUTROPHILS (test c ode = 1066) 2.64 K/UL ABSOLUTE LYMPHOCYTES (test c ode = 1067) 2.64 K/UL ABSOLUTE MONOCYTES (test cod e = 1068) 0.44 K/UL ABSOLUTE EOSINOPHILS (test c ode = 1040) 0.26 K/UL ABSOLUTE BASOPHILS (test cod e = 1069) 0.03 K/UL ABS IMMATURE GRANULOCYTES (t est code = 1020) 0.01 K/UL ABS NUCLEATED RBCS (test cod e = 71709) 0.00 K/UL [facility] [id number] 00:00:00* Test Item Value Reference Range Interpretation Comme nts WBC (test code = 1001) 6.0 K/UL RBC (test code = 1002) 4.11 M/UL HEMOGLOBIN (test code = 1003) 12.5 G/DL HEMATOCRIT (test code = 1004) 37.3 % MCV (test code = 1005) 90.8 fL MCH (test code = 1006) 30.4 PG MCHC (test code = 1007) 33.5 G/DL RDW (test code = 1038) 13.5 % NEUTROPHILS (test code = 1008) 43.8 % LYMPHOCYTES (test code = 1010) 43.9 % MONOCYTES (test code = 1011) 7.3 % EOSINOPHILS (test code = 1012) 4.3 % BASOPHILS (test code = 1013) 0.5 % IMMATURE GRANULOCYTES (test code = 1036) 0.2 % NUCLEATED RBCS (test code = 1065) 0.0 /100WBC'S PLATELET COUNT (test code = 1015) 239 K/UL ABSOLUTE NEUTROPHILS (test c ode = 1066) 2.64 K/UL ABSOLUTE LYMPHOCYTES (test c ode = 1067) 2.64 K/UL ABSOLUTE MONOCYTES (test cod e = 1068) 0.44 K/UL ABSOLUTE EOSINOPHILS (test c ode = 1040) 0.26 K/UL ABSOLUTE BASOPHILS (test cod e = 1069) 0.03 K/UL ABS IMMATURE GRANULOCYTES (t est code = 1020) 0.01 K/UL ABS NUCLEATED RBCS (test cod e = 30308) 0.00 K/UL LIPID [id number] 00:00:00* Test Item Value Reference Range Interpretation Comme nts CHOLESTEROL (test code = 2210) 237 MG/DL TRIGLYCERIDES (test code = 2232) 92 MG/DL HDL CHOLESTEROL (test code = 2220) 57 MG/DL CALC LDL CHOL (test code = 2237) 162 MG/DL RISK RATIO LDL/HDL (test cod e = 2238) 2.84 RATIO Lorne PatriciaCOMPREHENSIVE METABOLIC [id number] 00:00:00* Test Item Value Reference Range Interpretation Comme nts GLUCOSE (test code = 2217) 120 MG/DL BUN (test code = 2208) 16 MG/DL CREATININE (test code = 2214) 0.63 MG/DL eGFR AMER. (test cod e = 96280) 118 ML/MIN/1.73 eGFR NON- AMER. (test code = 36740) 102 ML/MIN/1.73 CALC BUN/CREAT (test code = 2235) 25 RATIO SODIUM (test code = 2231) 150 MEQ/L POTASSIUM (test code = 2228) 4.3 MEQ/L CHLORIDE (test code = 2215) 107 MEQ/L CARBON DIOXIDE (test code = 2206) 30 MEQ/L CALCIUM (test code = 2209) 9.3 MG/DL PROTEIN, TOTAL (test code = 2229) 7.4 G/DL ALBUMIN (test code = 2201) 4.4 G/DL CALC GLOBULIN (test code = 2240) 3.0 G/DL CALC A/G RATIO (test code = 2234) 1.5 RATIO BILIRUBIN, TOTAL (test code = 2207) 0.3 MG/DL ALKALINE PHOSPHATASE (test code = 2204) 75 U/L AST (test code = 2218) 19 U/L ALT (test code = 2219) 16 U/L Lorne Crawford AustinLIPID [id number] 00:00:00* Test Item Value Reference Range Interpretation Comme nts CHOLESTEROL (test code = 2210) 237 MG/DL TRIGLYCERIDES (test code = 2232) 92 MG/DL HDL CHOLESTEROL (test code = 2220) 57 MG/DL CALC LDL CHOL (test code = 2237) 162 MG/DL RISK RATIO LDL/HDL (test cod e = 2238) 2.84 RATIO Lorne Crawford SacramentoCOMPREHENSIVE METABOL[place] [id number] 00:00:00* Test Item Value Reference Range Interpretation Comme nts GLUCOSE (test code = 2217) 120 MG/DL BUN (test code = 2208) 16 MG/DL CREATININE (test code = 2214) 0.63 MG/DL eGFR AMER. (test cod e = 19631) 118 ML/MIN/1.73 eGFR NON- AMER. (test code = 70564) 102 ML/MIN/1.73 CALC BUN/CREAT (test code = 2235) 25 RATIO SODIUM (test code = 2231) 150 MEQ/L POTASSIUM (test code = 2228) 4.3 MEQ/L CHLORIDE (test code = 2215) 107 MEQ/L CARBON DIOXIDE (test code = 2206) 30 MEQ/L CALCIUM (test code = 2209) 9.3 MG/DL PROTEIN, TOTAL (test code = 222) 7.4 G/DL ALBUMIN (test code = 2201) 4.4 G/DL CALC GLOBULIN (test code = 2240) 3.0 G/DL CALC A/G RATIO (test code = 2234) 1.5 RATIO BILIRUBIN, TOTAL (test code = 2207) 0.3 MG/DL ALKALINE PHOSPHATASE (test code = 2204) 75 U/L AST (test code = 2218) 19 U/L ALT (test code = 2219) 16 U/L Lorne Ty SacramentoLIPID [id number] 00:00:00* Test Item Value Reference Range Interpretation Comme nts CHOLESTEROL (test code = 2210) 237 MG/DL TRIGLYCERIDES (test code = 2232) 92 MG/DL HDL CHOLESTEROL (test code = 2220) 57 MG/DL CALC LDL CHOL (test code = 2237) 162 MG/DL RISK RATIO LDL/HDL (test cod e = 2238) 2.84 RATIO Lorne Crawford HarshadCOMPREHENSIVE METABOLIC [id number] 00:00:00* Test Item Value Reference Range Interpretation Comme nts GLUCOSE (test code = 2217) 120 MG/DL BUN (test code = 2208) 16 MG/DL CREATININE (test code = 2214) 0.63 MG/DL eGFR AMER. (test cod e = 57671) 118 ML/MIN/1.73 eGFR NON- AMER. (test code = 78118) 102 ML/MIN/1.73 CALC BUN/CREAT (test code = 2235) 25 RATIO SODIUM (test code = 2231) 150 MEQ/L POTASSIUM (test code = 2228) 4.3 MEQ/L CHLORIDE (test code = 2215) 107 MEQ/L CARBON DIOXIDE (test code = 2206) 30 MEQ/L CALCIUM (test code = 2209) 9.3 MG/DL PROTEIN, TOTAL (test code = 2229) 7.4 G/DL ALBUMIN (test code = 2201) 4.4 G/DL CALC GLOBULIN (test code = 2240) 3.0 G/DL CALC A/G RATIO (test code = 2234) 1.5 RATIO BILIRUBIN, TOTAL (test code = 2207) 0.3 MG/DL ALKALINE PHOSPHATASE (test code = 2204) 75 U/L AST (test code = 2218) 19 U/L ALT (test code = 2219) 16 U/L Lorne Crawford [place] [id number] 00:00:00* Test Item Value Reference Range Interpretation Comme nts CHOLESTEROL (test code = 2210) 237 MG/DL TRIGLYCERIDES (test code = 2232) 92 MG/DL HDL CHOLESTEROL (test code = 2220) 57 MG/DL CALC LDL CHOL (test code = 2237) 162 MG/DL RISK RATIO LDL/HDL (test cod e = 2238) 2.84 RATIO Lorne PatriciaCOMPREHENSIVE METABOLIC [id number] 00:00:00* Test Item Value Reference Range Interpretation Comme nts GLUCOSE (test code = 2217) 120 MG/DL BUN (test code = 2208) 16 MG/DL CREATININE (test code = 2214) 0.63 MG/DL eGFR AMER. (test cod e = 93858) 118 ML/MIN/1.73 eGFR NON- AMER. (test code = 76175) 102 ML/MIN/1.73 CALC BUN/CREAT (test code = 2235) 25 RATIO SODIUM (test code = 2231) 150 MEQ/L POTASSIUM (test code = 2228) 4.3 MEQ/L CHLORIDE (test code = 2215) 107 MEQ/L CARBON DIOXIDE (test code = 2206) 30 MEQ/L CALCIUM (test code = 2209) 9.3 MG/DL PROTEIN, TOTAL (test code = 2229) 7.4 G/DL ALBUMIN (test code = 2201) 4.4 G/DL CALC GLOBULIN (test code = 2240) 3.0 G/DL CALC A/G RATIO (test code = 2234) 1.5 RATIO BILIRUBIN, TOTAL (test code = 2207) 0.3 MG/DL ALKALINE PHOSPHATASE (test code = 2204) 75 U/L AST (test code = 2218) 19 U/L ALT (test code = 2219) 16 U/L Lorne Crawford AustinLIPID [id number] 00:00:00* Test Item Value Reference Range Interpretation Comme nts CHOLESTEROL (test code = 2210) 237 MG/DL TRIGLYCERIDES (test code = 2232) 92 MG/DL HDL CHOLESTEROL (test code = 2220) 57 MG/DL CALC LDL CHOL (test code = 2237) 162 MG/DL RISK RATIO LDL/HDL (test cod e = 2238) 2.84 RATIO COMPREHENSIVE METABOLIC [id number] 00:00:00* Test Item Value Reference Range Interpretation Comme nts GLUCOSE (test code = 2217) 120 MG/DL BUN (test code = 2208) 16 MG/DL CREATININE (test code = 2214) 0.63 MG/DL eGFR AMER. (test cod e = 78650) 118 ML/MIN/1.73 eGFR NON- AMER. (test code = 83591) 102 ML/MIN/1.73 CALC BUN/CREAT (test code = 2235) 25 RATIO SODIUM (test code = 2231) 150 MEQ/L POTASSIUM (test code = 2228) 4.3 MEQ/L CHLORIDE (test code = 2215) 107 MEQ/L CARBON DIOXIDE (test code = 2206) 30 MEQ/L CALCIUM (test code = 2209) 9.3 MG/DL PROTEIN, TOTAL (test code = 2229) 7.4 G/DL ALBUMIN (test code = 2201) 4.4 G/DL CALC GLOBULIN (test code = 2240) 3.0 G/DL CALC A/G RATIO (test code = 2234) 1.5 RATIO BILIRUBIN, TOTAL (test code = 2207) 0.3 MG/DL ALKALINE PHOSPHATASE (test code = 2204) 75 U/L AST (test code = 2218) 19 U/L ALT (test code = 2219) 16 U/L
== END 2024-07-26 02:04 | disposition home or self-care (01) ==
LOC: ER 00:54
DX: K04.7 Periapical abscess without sinus (principal)
CPT/HCPCS: 99283